=== PATIENT | male | born 1970 | race Caucasian/White ===

== ENCOUNTER 2021-09-22 17:20 | Emergency (ER) | payer MEDICAID ==
[~2021-09-22] VITALS: Ht 185.4 cm; Wt 90.7 kg
--- NOTE | 2021-09-22 18:14 | NUR ---
Dr Chavis at bedside for MSE
--- NOTE | 2021-09-22 18:29 | NUR ---
component lab tech performed CT and XR
--- NOTE | 2021-09-22 19:05 | NUR ---
RECEIVED REPORT FROM MORNING RN. PT NOTED TO BE IN BED, A/O X4 NO SOB OR LABORED BREATHING. DENIES ANY PAIN/DISCOMFORT AT THIS TIME.
[2021-09-22] MEDS ORDERED: KETOROLAC TROMETHAMINE 60 MG INJ IM ONE ×2 (21:43→21:45)
[2021-09-22] MEDS ORDERED: IBUP-1958 PO (22:23)
--- NOTE | 2021-09-22 22:32 | NUR ---
Patient discharged to home in stable condition. Written and verbal after care instructions given. Patient verbalizes understanding of instructions. Stressed follow up or return to ER for worsening s/s. Steady gait, denies any CP/pressure. Denies any pain/discomfort upon discharge. Able to move all extremities within normal limits. No n/v. Denies any RANDALL/dizzyness. Picked up by .
[2021-09-22 22:33] VITALS: BP 132/80
== END 2021-09-22 22:34 | disposition home or self-care (01) ==
LOC: ER 17:31
DX: S09.90XA Unspecified injury of head, initial encounter (principal); S13.9XXA Sprain of joints and ligaments of unspecified parts of neck, initial encounter; S44.22XA Injury of radial nerve at upper arm level, left arm, initial encounter; V43.93XA Unspecified car occupant injured in collision with pick-up truck in traffic accident, initial encounter; Y92.410 Unspecified street and highway as the place of occurrence of the external cause
CPT/HCPCS: 29105; 70450; 72125; 73080; 96372; 99285; J1885; A4663